=== PATIENT | male | born 1960 | race Caucasian/White ===

== ENCOUNTER → 2017-12-25 | Outpatient (CLI) | payer OTHER | LOC: FCPNEURO 20:00 | PROVIDERS: ATTEND Student in an Organized Health Care Education/Training Program | DX: G47.33 Obstructive sleep apnea (adult) (pediatric) (principal); G47.31 Primary central sleep apnea ==

== ENCOUNTER → 2019-01-15 | Outpatient (CLI) | payer OTHER | LOC: BMCIMAGING 12:10 | PROVIDERS: ATTEND Family Medicine | DX: M79.674 Pain in right toe(s) (principal) ==

== ENCOUNTER 2019-04-17 14:24 | Emergency (ER) | payer OTHER | END 2019-04-17 16:54 | disposition home or self-care (01) | LOC: CED 14:24 ==